=== PATIENT | female | born 1945 ===

== ENCOUNTER 2017-12-28 11:53 | Emergency (ER) | payer MEDICAID, MEDICARE ==
[2017-12-28] MEDS ORDERED: Albuterol-Ipratrop 3 mg / 0.5 (3 ml) UD ONE (12:13)
[2017-12-28] MEDS ORDERED: Famotidine 20mg/50ml Premix IVPB STA (12:26)
[2017-12-28] MEDS ORDERED: Albuterol-Ipratrop 3 mg / 0.5 (3 ml) UD INH STA ×3 (12:26→12:27)
[2017-12-28 12:29] VITALS: O2SAT 97
--- NOTE | 2017-12-28 12:35 | ED PDOC ---
HPI: Allergic Reaction Time Seen by Provider: 12/28/17 12:09 Chief Complaint (Nursing): Shortness Of Breath Chief Complaint (Provider): Swollen Throat and Shortness of Breath History Per: Patient History/Exam Limitations: no limitations Onset/Duration Of Symptoms: Days Current Symptoms Are (Timing): Still Present Possible Cause: Medication Home/EMS Treatment: None Severity: None Additional Complaint(s): 72 year old female with a history of asthma and thyroid presents to the emergency department for an allergic reaction. Patient states that she is allergic to advil and someone gave her some ibuprofen not knowing that they were the same thing. She reports that she now feels like her throat is swollen and she is experiencing some shortness of breath. Denies chest pain, fever, cough. Past Medical History Reviewed: Historical Data, Nursing Documentation, Vital Signs Vital Signs: Last Vital Signs Temp Pulse Resp 19 12/28/17 12:25 BP Pulse Ox 97 12/28/17 12:25 - Medical History PMH: Asthma - Surgical History Surgical History: No Surg Hx - Family History Family History: States: Unknown Family Hx - Social History Current smoker - smoking cessation education provided: No Ex-Smoker (has not smoked in the last 12 months): No Alcohol: None Drugs: Denies - Home Medications Home Medications: Ambulatory Orders Medication Instructions Recorded Albuterol HFA [Ventolin HFA 90 2 puff IH [id number] PRN #1 bottle 12/28/17 mcg/actuation (8 g)] DiphenhydrAMINE [Benadryl] 50 mg PO Q6H 3 Days #20 cap 12/28/17 Famotidine [Pepcid] 20 mg PO BID 3 Days #20 tab 12/28/17 Prednisone 50 mg PO DAILY #4 tab 12/28/17 - Allergies Allergies/Adverse Reactions: Allergies Allergy/AdvReac Type Severity Reaction Status Date / Time aspirin Allergy SHORTNESS Verified 12/28/17 12:10 OF BREATH ibuprofen Allergy SHORTNESS Verified 12/28/17 12:10 OF BREATH Penicillins Allergy RASH Verified 12/28/17 12:10 Review of Systems Constitutional: Negative for: Fever ENT: Positive for: Throat Swelling Cardiovascular: Negative for: Chest Pain Respiratory: Positive for: Shortness of Breath. Negative for: Cough Physical Exam - Reviewed Nursing Documentation Reviewed: Yes Vital Signs Reviewed: Yes - Physical Exam Appears: Positive for: Non-toxic, No Acute Distress Head Exam: Positive for: ATRAUMATIC, NORMAL INSPECTION, NORMOCEPHALIC Skin: Positive for: Normal Color, Warm, Dry. Negative for: Rash Eye Exam: Positive for: Normal appearance, EOMI, PERRL. Negative for: Nystagmus ENT: Positive for: Other (uvula edematous; no drooling). Negative for: Nasal Congestion, Tonsillar Exudate, Tonsillar Swelling Neck: Positive for: Normal, Painless ROM, Supple Cardiovascular/Chest: Positive for: Regular Rate, Rhythm, Chest Non Tender. Negative for: Tachycardia Respiratory: Positive for: Normal Breath Sounds (Good air movement), Respiratory Distress (moderate). Negative for: Rales, Rhonchi, Wheezing Gastrointestinal/Abdominal: Positive for: Normal Exam, Bowel Sounds, Soft. Negative for: Tenderness, Mass, Guarding, Rebound Back: Positive for: Normal Inspection. Negative for: L CVA Tenderness, R CVA Tenderness, Vertebral Tenderness Extremity: Positive for: Normal ROM. Negative for: Tenderness, Calf Tenderness , Deformity, Swelling Neurologic/Psych: Positive for: Alert, Oriented, Gait - ECG O2 Sat by Pulse Oximetry: 97 (RA) Pulse Ox Interpretation: Normal - Progress ED Course And Treament: 1209 Initial Impression 72 year old female presenting with allergic reaction Initial Plan: * Albuterol 3 mL INH * Pepcid 20 mg IVPB * SOLU-medrol 125 mg IVP * Peak Flow pre/post * Reevaluation 1312 Patient is feeling better and is now speaking in full sentences. Pt repeatedly asking to be discharged. GENE LOUISE, thank you for letting us take care of you today. Your provider was Althea Dao MD and you were treated for SHORTNESS OF BREATH. The emergency medical care you received today was directed at your acute symptoms. If you were prescribed any medication, please fill it and take as directed. It may take several days for your symptoms to resolve. Return to the Emergency Department if your symptoms worsen, do not improve, or if you have any other problems. Please contact your doctor or call one of the physicians/clinics you have been referred to that are listed on the Patient Visit Information form that is included in your discharge packet. Bring any paperwork you were given at discharge with you along with any medications you are taking to your follow up visit. Our treatment cannot replace ongoing medical care by a primary care provider outside of the emergency department. Thank you for allowing the [facility] team to be part of your care today. Documented by Myriam Del Rio acting as a scribe for Althea Dao MD. All medical record entries made by the Scribe were at my direction and personally dictated by me. I have reviewed the chart and agree that the record accurately reflects my personal performance of the history, physical exam, medical decision making, and the department course for this patient. I have also personally directed, reviewed, and agree with the discharge instructions and disposition. Disposition - Clinical Impression Clinical Impression: Allergic reaction caused by a drug - Patient ED Disposition Is Patient to be Admitted: No Counseled Patient/Family Regarding: Studies Performed, Diagnosis - Disposition Referrals: [facility] [Outside] Disposition: Routine/Home Disposition Time: 13:12 Condition: IMPROVED Additional Instructions: FOLLOW-UP WITH PMD WITHIN 2 DAYS FOR REEVALUATION. Prescriptions: Albuterol HFA [Ventolin HFA 90 mcg/actuation (8 g)] 2 puff IH [id number] PRN #1 bottle PRN Reason: Shortness Of Breath DiphenhydrAMINE [Benadryl] 50 mg PO Q6H 3 Days #20 cap Famotidine [Pepcid] 20 mg PO BID 3 Days #20 tab Prednisone 50 mg PO DAILY #4 tab Instructions: Drug Allergy Forms: [facility] (Lithuanian) Print Language: FAROESE - POA Present On Arrival: None
[2017-12-28] MEDS ORDERED: Famotidine 20mg/50ml 0 MG/0 ML BAG IVPB ONE (12:41)
[2017-12-28] MEDS ORDERED: Famotidine 20mg/50ml 20 MG/50 ML BAG IVPB ONE (13:12)
[2017-12-28 14:19] VITALS: BP 129/81; PULSE 84; RESP 16; TEMP 98.1
== END 2017-12-28 14:19 | disposition home or self-care (01) ==
LOC: H.ER 11:53
DX: T88.7XXA Unspecified adverse effect of drug or medicament, initial encounter (principal); Z88.0 Allergy status to penicillin; J45.909 Unspecified asthma, uncomplicated
CPT/HCPCS: 94640; 96374; 96375; 99284; J2930